=== PATIENT | male | born 1970 | race Caucasian/White ===

== ENCOUNTER 2017-11-21 08:29 | Outpatient (CLI) | payer BC ==
[2017-11-21] MEDS ORDERED: Iopamidol 370 76% 100 ML VIAL ONE (09:00)
--- NOTE | 2017-11-21 10:07 | CT ---
NECK CT WITH IV CONTRAST: Date: 11-21-17 Comparison: None. History: Cyst/knot in the floor of the mouth for one month. Patient reports that it has drained in th e past. Technique: Serial axial CT imaging obtained at 2 mm intervals from the skull base through the lung ap ices with IV contrast. Coronal and sagittal reformatted imaging obtained. FINDINGS: The imaged lung apices appear unremarkable. There is mild mucosal thickening involving the alveolar recess of the maxillary sinus on the left. The retroantral fat and peripharyngeal fat appears clear bilaterally. The parotid glands and submandibular glands appear grossly unremarkable. There is a low density circumscribed oval mass within the floor of the mouth on the right, measuring 2.4 x 1.4 x 2.4 cm. This is ventral to the submandibular gland. There is a linear hypodensity which extends from this les ion to the ventral aspect of the right submandibular gland. There is no evidence for a sialolith. The mylohyoid muscle on the right is displaced slightly laterally and the genioglossus muscle is rose mary d medially. Differential diagnosis includes ranula and sialocele of the right submandibular duct. The thyroid gland, cricoid cartilage, thyroid cartilage, hyoid bone, level of the glottis, preepiglot tic fat and epiglottis appear within normal limits. No lymphadenopathy is noted. Vascular structures appear unremarkable. The images osseous structures are unremarkable. IMPRESSION: Circumscribed low density mass within the floor of mouth/right anterior sublingual space. This likely represents a ranula. A sialocele of the right submandibular gland duct is a possibility. No solid co mponents. No sialolith noted. POS: [facility]
== END 2017-11-21 08:30 | disposition home or self-care (01) ==
LOC: SCSCT 08:29
PROVIDERS: ATTEND Otolaryngology Plastic Surgery within the Head & Neck
DX: K11.6 Mucocele of salivary gland (principal); K13.29 Other disturbances of oral epithelium, including tongue
CPT/HCPCS: 70491

== ENCOUNTER 2017-11-27 09:02 | Day surgery (SDC) | payer BC ==
[2017-11-26 11:21] VITALS: BMI 31.4
[2017-11-27 11:51] LABS: Hemoglobin 14.8 g/dL (14.0-18.0); Mean Corpuscular HGB CONC 32.7 g/dL (32.0-36.0); Mean Corpuscular Hemoglobin 32.1 pg (27.0-31.0); Mean Platelet Volume 10.2 fL (7.4-10.4); Platelet Count 217 thou/uL (130-400); RBC Distribution Width 11.4 % (11.5-14.5); Red Blood Cell (RBC) Count 4.62 mill/uL (4.70-6.10); White Blood Cell (WBC) Count 6.2 thou/uL (4.8-10.8)
[2017-11-27 12:12] LABS: Anion Gap 14 mmol/L (10-20); BUN (Urea Nitrogen) 12 mg/dL (8.9-20.6); Calc. Creatinine Clearance 136 mL/min (70-130); Calcium 9.7 mg/dL (7.8-10.44); Carbon Dioxide 24 mmol/L (22-29); Chloride 104 mmol/L (98-107); Estimated GFR-MDRD 74; Glucose 86 mg/dL (70-105); Potassium 4.6 mmol/L (3.5-5.1); Sodium 137 mmol/L (136-145)
[2017-11-27] MEDS ORDERED: Lidocaine 1% w/Epinephrine 1:200K 30 ML VIAL ONE (12:28)
[2017-11-27] MEDS ORDERED: Fentanyl 100 MCG/2 ML VIAL ONE ×4 (12:30→14:19)
[2017-11-27] MEDS ORDERED: Succinylcholine Chloride 20 MG/ML 10 ml SYRINGE FS ONE (13:38)
[2017-11-27] MEDS ORDERED: Dexamethasone 20 MG/5 ML VIAL ONE (13:38)
[2017-11-27] MEDS ORDERED: Propofol 200 MG/20 ML VIAL ONE (13:38)
[2017-11-27] MEDS ORDERED: Ondansetron HCl/PF 4 MG/2 ML Vial ONE (13:38)
[2017-11-27] MEDS ORDERED: Lidocaine 1% PF 5 ML VIAL ONE (13:38)
[2017-11-27] MEDS ORDERED: Bacitracin Zinc Ointment 30 gm TUBE ONE (13:45)
[2017-11-27] MEDS ORDERED: Hydrocodone-Acetamin 15 ML UDCUP ONE (15:12)
--- NOTE | 2017-11-28 12:43 | OP ---
DATE OF PROCEDURE: 11/27/2017 PREOPERATIVE DIAGNOSES: 1. Right chronic sialadenitis. 2. Right floor of mouth ranula. PROCEDURES: 1. Excision of right submandibular gland. 2. Transcervical excision of right floor of mouth ranula. SURGEON: Duke Mckinley M.D. ESTIMATED BLOOD LOSS: 20 mL COMPLICATIONS: None. ANESTHESIA: GETA. PROCEDURE IN DETAIL: The patient was taken to the operating room and placed on the operating table. General endotracheal anesthesia was obtained by Anesthesia staff, secured the left lower lip, and th e head was gently turned away along with a shoulder roll exposing the right submandibular area. Foll owing this, the patient was prepped and draped in standard surgical fashion exposing the lower lip an d face for facial nerve activity. Following this, a previously marked incision longerly 2 cm below t he angle of the mandible horizontally into the neck was then injected with 1% lidocaine and 1:100,000 epinephrine. Following this, a 15 blade was used to make an incision to the skin, subcutaneous tiss ue, and the platysmal layer. Following this, subplatysmal flaps were elevated superiorly. The fasci a immediately overlying the submandibular gland was then identified and was elevated along with the m arginal mandibular nerve and retracted superiorly. At this level, the facial artery and vein were gamble ture ligated just inferior to the mandible. The gland was then freed from its attachments posteriorl y and inferiorly. The hypoglossal nerve was easily visualized just deep to the medial aspect of the gland. Following this, the gland was then displaced inferiorly where the lingual nerve was identifie d. The post-ganglionic fibers going to the submandibular gland were then suture ligated immediately adjacent to the gland. Following this, the duct of the submandibular gland was noted to be enlarged and swollen, was suture ligated immediately adjacent to the floor of mouth protecting the lingual and hypoglossal nerve with a 3-0 silk stitch. Following this, the adjacent small ranula was then clampe d using a 90-degree hemostat and was suture ligated with a 2-0 silk. Following this, the wound was i rrigated, a small drain was placed. The platysmal and subcutaneous layers were closed using Monocryl stitches and the skin was closed using Dermabond. The patient tolerated the procedure well.
== END 2017-11-27 16:00 | disposition home or self-care (01) ==
LOC: SDC 09:02
PROVIDERS: ATTEND Otolaryngology Plastic Surgery within the Head & Neck
PROC: 0CBG0ZX Excision of Right Submaxillary Gland, Open Approach, Diagnostic (ICD-10-PCS; principal; 2017-11-27)
PROC: 0CB Mouth and Throat, Excision (ICD-10-PCS; principal; 2017-11-27)
DX: K11.23 Chronic sialoadenitis (principal); K11.6 Mucocele of salivary gland; I48.91 Unspecified atrial fibrillation; F41.9 Anxiety disorder, unspecified; J32.9 Chronic sinusitis, unspecified; F17.220 Nicotine dependence, chewing tobacco, uncomplicated; Z79.899 Other long term (current) drug therapy; Z98.84 Bariatric surgery status; Z98.890 Other specified postprocedural states; Z87.442 Personal history of urinary calculi
CPT/HCPCS: 80048; 85027; 88307; 93005; 93010; 96374; J1100; J2001; J2405; J2704; J3010

== ENCOUNTER 2018-03-19 08:07 | Day surgery (SDC) | payer BC ==
[2018-03-18 10:43] VITALS: BMI 29.5
[2018-03-19] MEDS ORDERED: Lidocaine 1% w/Epinephrine 1:200K 30 ML VIAL ONE (09:53)
[2018-03-19] MEDS ORDERED: Ondansetron PF 4 MG/2 ML Vial ONE ×2 (09:54→15:04)
[2018-03-19] MEDS ORDERED: Fentanyl 250 MCG/5 ML VIAL ONE (09:54)
[2018-03-19] MEDS ORDERED: Lidocaine 2% Jelly 5 ML TUBE ONE (09:54)
[2018-03-19] MEDS ORDERED: Fentanyl 100 MCG/2 ML VIAL ONE ×2 (09:54→11:41)
[2018-03-19] MEDS ORDERED: Famotidine/PF 20 mg/2ml Vial ONE (09:55)
[2018-03-19] MEDS ORDERED: Oxymetazoline HCl 0.05% ( 15 ML ) ONE (09:57)
[2018-03-19] MEDS ORDERED: cefTRIAXone\\ROCEPHIN 1 GM VIAL ONE (10:43)
--- NOTE | 2018-03-19 11:39 | EKG ---
Test Reason : PREOP Blood Pressure : / mmHG Vent. Rate : 060 BPM Atrial Rate : 060 BPM P-R Int : 164 ms QRS Dur : 098 ms QT Int : 416 ms P-R-T Axes : -10 014 026 degrees QTc Int : 416 ms Normal sinus rhythm Normal ECG When compared with ECG of 27-NOV-2017 11:37, No significant change was found Confirmed by DR. Irwin FORREST ([id number]) on 03/19/2018 11:38:34 AM Referred By: EDDA Confirmed By:DR. Irwin FORREST
[2018-03-19] MEDS ORDERED: Hydrocodone-Acetamin 15 ML UDCUP ONE (12:56)
[2018-03-19] MEDS ORDERED: ePHEDrine/0.9% NaCl/PF SYRINGE 50 mg/10 ml ONE (15:04)
[2018-03-19] MEDS ORDERED: PHENYLEPHRINE-NS 100 MCG/ML 10 ML SYRINGE ONE (15:04)
[2018-03-19] MEDS ORDERED: Lidocaine 1% PF 5 ML VIAL ONE (15:04)
[2018-03-19] MEDS ORDERED: Succinylcholine Chloride 20 MG/ML 10 ml SYRINGE FS ONE (15:04)
[2018-03-19] MEDS ORDERED: Ketorolac Tromethamine 30 MG/ML VIAL ONE (15:04)
[2018-03-19] MEDS ORDERED: PROPOFOL 200 MG/20 ML VIAL ONE (15:04)
[2018-03-19] MEDS ORDERED: Dexamethasone 20 MG/5 ML VIAL ONE (15:04)
--- NOTE | 2018-03-19 22:59 | OP ---
PREOPERATIVE DIAGNOSIS: Plunging ranula right side. POSTOPERATIVE DIAGNOSIS: Plunging ranula right side. PROCEDURES: Transoral excision of plunging ranula. SURGEON: Duke Mckinley M.D. ESTIMATED BLOOD LOSS: 15 mL. COMPLICATIONS: None. ANESTHESIA: GETA. PROCEDURE IN DETAIL: Patient was taken to the operating room and placed supine on the table. Genera l endotracheal anesthesia was obtained via nasotracheal intubation. Following this, the patient was prepped and draped for standard oral procedure. A self-retaining oral cavity retractors were placed to expose the right floor of mouth. A 3 mL of 1% lidocaine with 1:100,000 epinephrine was injected i nto the mucosa around this area. Following this, the visualized portion of the ranula along with any adjacent sublingual glands were then resected, taking great care to protect the hypoglossal nerves a nd lingual nerves. Following this, mucosa was reapproximated using chromic gut stitch. Patient aditi rated the procedure well.
== END 2018-03-19 13:45 | disposition home or self-care (01) ==
LOC: SDC 08:07
PROVIDERS: ATTEND Otolaryngology Plastic Surgery within the Head & Neck
PROC: 0CB Mouth and Throat, Excision (ICD-10-PCS; principal; 2018-03-19)
DX: K11.6 Mucocele of salivary gland (principal); I48.91 Unspecified atrial fibrillation; F41.9 Anxiety disorder, unspecified; F17.220 Nicotine dependence, chewing tobacco, uncomplicated; Z79.899 Other long term (current) drug therapy; Z98.890 Other specified postprocedural states
CPT/HCPCS: 88305; 93005; 93010; 96374; J0696; J1100; J1885; J2001; J2405; J2704; J3010; S0028